=== PATIENT | male | born 1965 | race Caucasian/White ===

== ENCOUNTER 2020-04-16 18:36 | Emergency (ER) | payer MEDICARE, OTHER ==
[~2020-04-16] VITALS: Ht 162.6 cm; Wt 54.5 kg
[2020-04-16] MEDS ORDERED: LINA5TAB PO (19:13)
[2020-04-16] MEDS ORDERED: CARV3 PO (19:13)
[2020-04-16] MEDS ORDERED: LISI-662 PO (19:13)
[2020-04-16] MEDS ORDERED: PHOSLOC PO (19:13)
[2020-04-16] MEDS ORDERED: DONE5TAB5 PO (19:13)
[2020-04-16] MEDS ORDERED: AMLO-258 PO (19:13)
[2020-04-16] MEDS ORDERED: ATOR20TA86 PO (19:13)
[2020-04-16] MEDS ORDERED: LEVE500T53 PO (19:13)
[2020-04-16] MEDS ORDERED: DIVA-85 PO (19:13)
[2020-04-16] MEDS ORDERED: PROV5 PO (19:13)
[2020-04-16] MEDS ORDERED: PANT-31 PO (19:13)
[2020-04-16] MEDS ORDERED: ONDANSETRON HCL 4 MG/2 ML VIAL IVP ONE (19:15)
[2020-04-16 19:48] LABS: EOSINOPHILS % (AUTO) 5.3 % (1.0-6.0); HEMATOCRIT 37.4 % (41-53); HEMOGLOBIN 12.4 g/dL (13.5-17.5); LYMPHOCYTES # (AUTO) 0.7 K/uL (1.0-4.8); LYMPHOCYTES % (AUTO) 19.4 % (22.0-44.0); MEAN CORPUSCULAR HEMOGLOBIN 33.9 pg (26.0-34.0); MEAN CORPUSCULAR HGB CONC 33.2 G/dL (31.0-37.0); MEAN CORPUSCULAR VOLUME 102 fL (80-100); MONOCYTES # (AUTO) 0.5 K/uL (0.1-1.0); MONOCYTES % (AUTO) 13.8 % (2.0-9.0); NEUTROPHILS # (AUTO) 2.1 K/uL (1.8-7.7); NEUTROPHILS % (AUTO) 60.5 % (40.0-70.0); PLATELET COUNT (AUTO) 125 K/uL (150-450); RED BLOOD CELL COUNT(AUTO) 3.66 MIL/uL (4.50-5.90); RED CELL DISTRIBUTION WIDTH 13.2 % (11.5-14.5)
[2020-04-16 20:12] LABS: CREATININE 5.98 mg/dL (0.60-1.30); POTASSIUM 4.2 mmol/L (3.5-5.1)
[2020-04-16 20:18] VITALS: BP 157/84
[2020-04-16 20:18] LABS: ALBUMIN 3.6 g/dL (3.4-5.0); BILIRUBIN,TOTAL 0.6 mg/dL (0.1-1.0)
== END 2020-04-16 22:13 | disposition home or self-care (01) ==
LOC: EMS 18:36
DX: R11.2 Nausea with vomiting, unspecified (principal); R41.0 Disorientation, unspecified; I12.0 Hypertensive chronic kidney disease with stage 5 chronic kidney disease or end stage renal disease; E11.22 Type 2 diabetes mellitus with diabetic chronic kidney disease; N18.6 End stage renal disease; Z86.73 Personal history of transient ischemic attack (TIA), and cerebral infarction without residual deficits; Z99.2 Dependence on renal dialysis; Z79.899 Other long term (current) drug therapy
CPT/HCPCS: 36415; 70450; 71045; 80053; 84484; 85025; 93005; 96374; 99285; J2405

== ENCOUNTER 2022-06-06 22:22 | Inpatient (IN) | payer MEDICARE, OTHER ==
[~2022-06-06] VITALS: Ht 170.2 cm; Wt 52.4 kg
[~2022-06-06 22:22] MED LIST: AMLO-258 PO; ATOR20TA86 GT; CARV3 GT; DIVA-85 PO; DONE-52 GT; LEVE500T20 PO; LINA5TAB PO; LISI-894 GT; MEDR5TAB5 PO; PANT-31 PO; PHOSLOC PO
[2022-06-06 23:07] LABS: LYMPHOCYTES # (AUTO) 0.5 K/uL (1.0-4.8); MONOCYTES # (AUTO) 0.4 K/uL (0.1-1.0); MONOCYTES % (AUTO) 13.3 % (2.0-9.0); NEUTROPHILS # (AUTO) 1.8 K/uL (1.8-7.7)
[2022-06-06 23:11] LABS: BASOPHILS % (AUTO) 0.5 % (0.0-2.0); EOSINOPHILS % (AUTO) 2.4 % (1.0-6.0); HEMATOCRIT 35.5 % (41-53); HEMOGLOBIN 11.8 g/dL (13.5-17.5); LYMPHOCYTES % (AUTO) 18.2 % (22.0-44.0); MEAN CORPUSCULAR HGB CONC 33.3 G/dL (31.0-37.0); MEAN CORPUSCULAR VOLUME 108 fL (80-100); NEUTROPHILS % (AUTO) 65.6 % (40.0-70.0); RED BLOOD CELL COUNT(AUTO) 3.28 MIL/uL (4.50-5.90)
[2022-06-06 23:16] LABS: CALCIUM, TOTAL 9.2 mg/dL (8.8-10.5); CREATININE 2.17 mg/dL (0.60-1.30); POTASSIUM 4.1 mmol/L (3.5-5.1)
[2022-06-06 23:20] LABS: PROTHROMBIN TIME 11.1 SEC (9.4-11.6)
[2022-06-06 23:22] LABS: ALBUMIN 2.8 g/dL (3.4-5.0); BILIRUBIN,TOTAL 0.6 mg/dL (0.1-1.0); TOTAL PROTEIN, SERUM 7.1 g/dL (6.4-8.2)
[2022-06-06 23:25] LABS: PLATELET COUNT (AUTO) 91 K/uL (150-450)
[2022-06-07 02:01] LABS: COVID AG,FIA SOURCE NASAL SWAB
[2022-06-07 04:50] VITALS: BP 149/69
[2022-06-07 07:33] VITALS: BP 146/72
[2022-06-07 13:51] LABS: GLUCOMETER DEV NAME(LOC) 6N.2B; GLUCOSE,POINT OF CARE 84 MG/DL (70-110)
[2022-06-07 15:08] VITALS: BP 155/74
[2022-06-07] MEDS ORDERED: INSULIN LISPRO 100 UNITS/ML SQ PRN (15:15)
[2022-06-07] MEDS ORDERED: DEXTROSE 50%-WATER 25 GM/50 ML SYRINGE IVP PRN (15:15)
[2022-06-07] MEDS ORDERED: ACETAMINOPHEN 650 MG RECTAL SUPPOSITORY PR PRN (15:30)
[2022-06-07 19:35] VITALS: BP 148/73
[2022-06-07 21:56] LABS: GLUCOMETER DEV NAME(LOC) 6N.2B; GLUCOSE,POINT OF CARE 71 MG/DL (70-110)
[2022-06-07 21:56] LABS: GLUCOMETER DEV NAME(LOC) 6N.2B; GLUCOSE,POINT OF CARE 159 MG/DL (70-110)
[2022-06-07 21:56] LABS: GLUCOMETER DEV NAME(LOC) 6N.2B; GLUCOSE,POINT OF CARE 62 MG/DL (70-110)
[2022-06-07] MEDS ORDERED: CALC667T3 GT (22:12)
[2022-06-07] MEDS ORDERED: ATOR10TA69 PO (22:14)
[2022-06-07] MEDS ORDERED: LevETIRAcetam 750 MG in DEXTROSE 5%-WATER 100 ML IV SCH (22:15)
[2022-06-07] MEDS ORDERED: INSNOV SQ (22:41)
[2022-06-07] MEDS ORDERED: INSU100I3 SQ (22:41)
[2022-06-08] VITALS (13 sets, daily range): BP systolic 142–191; BP diastolic 72–95
[2022-06-08] MEDS ORDERED: SODIUM CHLORIDE 0.9% 500 ML IV ONE (00:55)
[2022-06-08] MEDS: DEXTROSE 5%-0.45% SODIUM CHL 1,000 ML IV SCH ×2 (01:00→21:16)
[2022-06-08] MEDS: VALPROATE SODIUM 500 MG in DEXTROSE 5%-WATER 50 ML IV SCH ×2 (01:01→16:33)
[2022-06-08 07:16] LABS: GLUCOMETER DEV NAME(LOC) 6N.2B; GLUCOSE,POINT OF CARE 83 MG/DL (70-110)
[2022-06-08] MEDS ORDERED: SODIUM CHLORIDE 0.9% 2,000 ML ONE (10:27)
[2022-06-08] MEDS ORDERED: SODIUM CHLORIDE 0.9% 1,000 ML IV ONE (14:00)
[2022-06-08] MEDS ORDERED: SODIUM CHLORIDE 0.9% 1,000 ML ONE (15:09)
[2022-06-08] MEDS ORDERED: CeFAZolin 1 GM/DEXTROSE 50 ML IV ONE (15:45)
[2022-06-08] MEDS ORDERED: BISACODYL 10 MG RECTAL RECTAL SUPPOSITORY PR PRN (17:30)
[2022-06-08] MEDS ORDERED: SODIUM PHOS/SODIUM BIPHOS 133 ML ENEMA PR PRN (17:30)
[2022-06-08] MEDS ORDERED: ALBUTEROL SULFATE/IPRATROPIUM 100-20 MCG/SPRAY 4 GM INHALER IH PRN (17:30)
[2022-06-08] MEDS ORDERED: ACETAMINOPHEN 325 MG TABLET GT PRN (17:30)
[2022-06-08] MEDS ORDERED: MAGNESIUM HYDROXIDE SUSPENSION 30 ML UDCUP GT PRN (17:30)
[2022-06-08] MEDS ORDERED: LABETALOL HCL 5 MG/ML 20 ML VIAL IVP ONE (17:30)
[2022-06-08] MEDS ORDERED: ALBUTEROL SULFATE 2.5 MG/0.5 ML NEB SOLUTION NEB PRN (17:30)
[2022-06-08] MEDS ORDERED: ACET-784 PO (17:51)
[2022-06-08] MEDS ORDERED: VALP250S23 GT (17:51)
[2022-06-08] MEDS ORDERED: MAGN-169 PO (17:51)
[2022-06-08] MEDS ORDERED: IPRA4AER IH (17:51)
[2022-06-08] MEDS ORDERED: NA P133E4 PR (17:51)
[2022-06-08] MEDS ORDERED: BISA10SU11 PR (17:51)
[2022-06-08] MEDS ORDERED: ACET-2247 GT (17:51)
[2022-06-08] MEDS ORDERED: AUD NEB (17:51)
[2022-06-08] MEDS: LISINOPRIL 20 MG TABLET GT SCH (18:20)
[2022-06-08] MEDS: CALCIUM ACETATE 667 MG CAPSULE GT SCH (18:20)
[2022-06-08] MEDS ORDERED: LEVE500S9 GT (18:54)
[2022-06-08] MEDS: ACETAMINOPHEN 650 MG/20.3 ML SOLUTION UDCUP GT PRN (18:59)
[2022-06-08 19:57] LABS: BASOPHILS % (AUTO) 0.6 % (0.0-2.0); EOSINOPHILS % (AUTO) 3.3 % (1.0-6.0); HEMATOCRIT 33.5 % (41-53); HEMOGLOBIN 11.4 g/dL (13.5-17.5); LYMPHOCYTES # (AUTO) 0.9 K/uL (1.0-4.8); LYMPHOCYTES % (AUTO) 30.1 % (22.0-44.0); MEAN CORPUSCULAR HEMOGLOBIN 36.9 pg (26.0-34.0); MEAN CORPUSCULAR HGB CONC 33.9 G/dL (31.0-37.0); MEAN CORPUSCULAR VOLUME 109 fL (80-100); MONOCYTES # (AUTO) 0.2 K/uL (0.1-1.0); MONOCYTES % (AUTO) 6.9 % (2.0-9.0); NEUTROPHILS # (AUTO) 1.7 K/uL (1.8-7.7); NEUTROPHILS % (AUTO) 59.1 % (40.0-70.0); PLATELET COUNT (AUTO) 80 K/uL (150-450); RED BLOOD CELL COUNT(AUTO) 3.09 MIL/uL (4.50-5.90); RED CELL DISTRIBUTION WIDTH 14.6 % (11.5-14.5)
[2022-06-08] MEDS: VALPROIC ACID 250 MG/5 ML SOLUTION UDCUP GT SCH (21:16)
[2022-06-08] MEDS: DONEPEZIL HCL 5 MG TABLET GT SCH (21:16)
[2022-06-08] MEDS: CARVEDILOL 3.125 MG TABLET GT SCH (21:16)
[2022-06-09 01:36] LABS: GLUCOMETER DEV NAME(LOC) 6N.2B; GLUCOSE,POINT OF CARE 107 MG/DL (70-110)
[2022-06-09 04:38] VITALS: BP 172/85
[2022-06-09] MEDS ORDERED: PROPOFOL 1% 20 ML VIAL IVP ONE (06:46)
[2022-06-09] MEDS ORDERED: LIDOCAINE/PF 2% 5 ML SYRINGE IVP ONE (06:46)
[2022-06-09] MEDS: LISINOPRIL 20 MG TABLET GT SCH (06:47)
[2022-06-09] MEDS: CARVEDILOL 3.125 MG TABLET GT SCH ×2 (06:47→21:09)
[2022-06-09 07:10] LABS: BASOPHILS % (AUTO) 0.5 % (0.0-2.0); EOSINOPHILS % (AUTO) 3.8 % (1.0-6.0); HEMATOCRIT 31.5 % (41-53); HEMOGLOBIN 10.8 g/dL (13.5-17.5); LYMPHOCYTES # (AUTO) 0.8 K/uL (1.0-4.8); LYMPHOCYTES % (AUTO) 27.1 % (22.0-44.0); MEAN CORPUSCULAR HEMOGLOBIN 36.7 pg (26.0-34.0); MEAN CORPUSCULAR HGB CONC 34.4 G/dL (31.0-37.0); MEAN CORPUSCULAR VOLUME 107 fL (80-100); MONOCYTES # (AUTO) 0.3 K/uL (0.1-1.0); MONOCYTES % (AUTO) 9.8 % (2.0-9.0); NEUTROPHILS # (AUTO) 1.8 K/uL (1.8-7.7); NEUTROPHILS % (AUTO) 58.8 % (40.0-70.0); PLATELET COUNT (AUTO) 75 K/uL (150-450); RED BLOOD CELL COUNT(AUTO) 2.95 MIL/uL (4.50-5.90); RED CELL DISTRIBUTION WIDTH 14.5 % (11.5-14.5)
[2022-06-09 08:00] VITALS: BP 146/53
[2022-06-09] MEDS: ATORVASTATIN CALCIUM 20 MG TABLET GT SCH (08:22)
[2022-06-09] MEDS: CALCIUM ACETATE 667 MG CAPSULE GT SCH ×3 (08:23→17:49)
[2022-06-09] MEDS: HYDROGEN PEROXIDE 473 ML SOLUTION TP SCH (08:43)
[2022-06-09] MEDS: POVIDONE-IODINE 10% 120 ML SOLUTION TP SCH (08:43)
[2022-06-09] MEDS: VALPROIC ACID 250 MG/5 ML SOLUTION UDCUP GT SCH ×2 (09:37→21:09)
[2022-06-09 12:31] LABS: GLUCOMETER DEV NAME(LOC) 6N.2B; GLUCOSE,POINT OF CARE 126 MG/DL (70-110)
[2022-06-09] MEDS: DEXTROSE 5%-0.45% SODIUM CHL 1,000 ML IV SCH (12:54)
[2022-06-09 19:13] VITALS: BP 157/76
[2022-06-09] MEDS ORDERED: WATER FOR IRRIGATION,STERILE 1000 ML SOLUTION BOTTLE ONE (20:54)
[2022-06-09] MEDS: DONEPEZIL HCL 5 MG TABLET GT SCH (21:09)
[2022-06-09 23:16] LABS: GLUCOMETER DEV NAME(LOC) 6N.1; GLUCOSE,POINT OF CARE 73 MG/DL (70-110)
[2022-06-09 23:17] LABS: GLUCOMETER DEV NAME(LOC) 6N.1; GLUCOSE,POINT OF CARE 101 MG/DL (70-110)
[2022-06-09 23:17] LABS: GLUCOMETER DEV NAME(LOC) 6N.2B; GLUCOSE,POINT OF CARE 123 MG/DL (70-110)
[2022-06-09 23:17] LABS: GLUCOMETER DEV NAME(LOC) 6N.1; GLUCOSE,POINT OF CARE 110 MG/DL (70-110)
[2022-06-10] MEDS: DEXTROSE 5%-0.45% SODIUM CHL 1,000 ML IV SCH ×3 (02:19→21:07)
[2022-06-10 04:30] VITALS: BP 148/71
[2022-06-10] MEDS: ACETAMINOPHEN 650 MG/20.3 ML SOLUTION UDCUP GT PRN (04:48)
[2022-06-10 07:48] VITALS: BP 141/69
[2022-06-10] MEDS: VALPROIC ACID 250 MG/5 ML SOLUTION UDCUP GT SCH ×2 (08:14→21:07)
[2022-06-10] MEDS: CALCIUM ACETATE 667 MG CAPSULE GT SCH ×3 (08:14→18:23)
[2022-06-10] MEDS: LISINOPRIL 20 MG TABLET GT SCH (08:15)
[2022-06-10] MEDS: CARVEDILOL 3.125 MG TABLET GT SCH ×2 (08:15→21:06)
[2022-06-10] MEDS: ATORVASTATIN CALCIUM 20 MG TABLET GT SCH (08:15)
[2022-06-10 15:59] VITALS: BP 166/80
[2022-06-10] MEDS: POVIDONE-IODINE 10% 120 ML SOLUTION TP SCH (17:13)
[2022-06-10] MEDS: HYDROGEN PEROXIDE 473 ML SOLUTION TP SCH (17:14)
[2022-06-10 17:56] LABS: GLUCOMETER DEV NAME(LOC) 6N.2B; GLUCOSE,POINT OF CARE 128 MG/DL (70-110)
[2022-06-10 17:56] LABS: GLUCOMETER DEV NAME(LOC) 6N.2B; GLUCOSE,POINT OF CARE 121 MG/DL (70-110)
[2022-06-10 20:00] VITALS: BP 157/69
[2022-06-10 20:15] VITALS: BP 144/71
[2022-06-10] MEDS ORDERED: WATER FOR IRRIGATION,STERILE 1000 ML SOLUTION BOTTLE ONE (20:57)
[2022-06-10] MEDS: DONEPEZIL HCL 5 MG TABLET GT SCH (21:06)
[2022-06-11] VITALS (12 sets, daily range): BP systolic 130–177; BP diastolic 69–88
[2022-06-11 03:06] LABS: GLUCOMETER DEV NAME(LOC) 6N.2B; GLUCOSE,POINT OF CARE 123 MG/DL (70-110)
[2022-06-11] MEDS: CALCIUM ACETATE 667 MG CAPSULE GT SCH ×2 (09:37→16:12)
[2022-06-11] MEDS: LISINOPRIL 20 MG TABLET GT SCH (09:37)
[2022-06-11] MEDS: VALPROIC ACID 250 MG/5 ML SOLUTION UDCUP GT SCH (09:37)
[2022-06-11] MEDS: CARVEDILOL 3.125 MG TABLET GT SCH (09:40)
[2022-06-11] MEDS: ATORVASTATIN CALCIUM 20 MG TABLET GT SCH (09:40)
[2022-06-11] MEDS: ACETAMINOPHEN 650 MG/20.3 ML SOLUTION UDCUP GT PRN (09:46)
[2022-06-11] MEDS: HYDROGEN PEROXIDE 473 ML SOLUTION TP SCH (09:46)
[2022-06-11] MEDS: POVIDONE-IODINE 10% 120 ML SOLUTION TP SCH (09:46)
[2022-06-11] MEDS ORDERED: SODIUM CHLORIDE 0.9% 200 ML ONE (10:14)
[2022-06-11] MEDS ORDERED: FOLIC ACID/VIT B COMPLEX AND C TABLET PO SCH (10:15)
[2022-06-11] MEDS ORDERED: LevETIRAcetam 750 MG in DEXTROSE 5%-WATER 100 ML IV ONE (15:00)
[2022-06-11] MEDS ORDERED: VALPROIC ACID 250 MG/5 ML SOLUTION UDCUP GT ONE (15:15)
[2022-06-11 15:31] LABS: GLUCOMETER DEV NAME(LOC) 6N.1; GLUCOSE,POINT OF CARE 124 MG/DL (70-110)
[2022-06-11] MEDS ORDERED: SODIUM CHLORIDE 0.9% 250 ML IV ONE (16:14)
[2022-06-11 16:52] LABS: GLUCOMETER DEV NAME(LOC) 6N.2B; GLUCOSE,POINT OF CARE 84 MG/DL (70-110)
[2022-06-11] MEDS ORDERED: [UNRECOGNIZED DRUG - CODE] TP (18:13)
[2022-06-11] MEDS ORDERED: [UNRECOGNIZED DRUG - CODE] TP (18:14)
[2022-06-11 19:41] LABS: GLUCOMETER DEV NAME(LOC) 6N.2B; GLUCOSE,POINT OF CARE 91 MG/DL (70-110)
== END 2022-06-11 18:20 | DRG 393 ==
LOC: EMS 22:39 → 6N 06-07 00:15 → 6S 06-08 18:59 → 6N 06-08 19:42
PROVIDERS: ADMIT Hospitalist; ATTEND Hospitalist
PROC: 5A1D70Z Performance of Urinary Filtration, Intermittent, Less than 6 Hours Per Day (ICD-10-PCS; 2022-06-08)
PROC: 0DH63UZ Insertion of Feeding Device into Stomach, Percutaneous Approach (ICD-10-PCS; principal; 2022-06-08 15:00)
PROC: 5A1D70Z Performance of Urinary Filtration, Intermittent, Less than 6 Hours Per Day (ICD-10-PCS; 2022-06-11)
DX: K94.23 Gastrostomy malfunction (principal); N18.6 End stage renal disease; D61.818 Other pancytopenia; N25.81 Secondary hyperparathyroidism of renal origin; I13.2 Hypertensive heart and chronic kidney disease with heart failure and with stage 5 chronic kidney disease, or end stage renal disease; I50.32 Chronic diastolic (congestive) heart failure; I82.B21 Chronic embolism and thrombosis of right subclavian vein; E44.0 Moderate protein-calorie malnutrition; Z68.1 Body mass index [BMI] 19.9 or less, adult; D63.1 Anemia in chronic kidney disease; E11.22 Type 2 diabetes mellitus with diabetic chronic kidney disease; F01.50 Vascular dementia, unspecified severity, without behavioral disturbance, psychotic disturbance, mood disturbance, and anxiety; Z20.822 Contact with and (suspected) exposure to COVID-19; G40.909 Epilepsy, unspecified, not intractable, without status epilepticus; Z74.01 Bed confinement status; Z99.2 Dependence on renal dialysis; I69.320 Aphasia following cerebral infarction; I69.318 Other symptoms and signs involving cognitive functions following cerebral infarction; Z79.899 Other long term (current) drug therapy; Y83.8 Other surgical procedures as the cause of abnormal reaction of the patient, or of later complication, without mention of misadventure at the time of the procedure; Y92.89 Other specified places as the place of occurrence of the external cause; K94.21 Gastrostomy hemorrhage
CPT/HCPCS: 71046; 74018; 80053; 82962; 85025; 85610; 85730; 87040; 87081; 87340; 87481; 90935; 93005; 99285; J0690; J0712; J2704; J3490; J7030; J7040; J7050; J7060; 36415-L1; 36415-TC; Z7610